=== PATIENT | male | born 1990 | race Caucasian/White ===

== ENCOUNTER 2018-07-29 00:22 | Emergency (ER) | payer OTHER ==
[~2018-07-29] VITALS: Ht 180.3 cm; Wt 79.4 kg
--- NOTE | 2018-07-29 00:23 | NUR ---
Placed in room 7 . Placed on property assessment monitor, blood pressure machine and pulse oximeter. To gown for exam. Side rails up. Report given to NICOLE BARCENAS.
--- NOTE | 2018-07-29 00:23 | NUR ---
Pt c/o right-sided C/P that radiates to upper back that woke him up from sleep 1.5 hours ago. Denies SOB, non-diaphoretic, VSS.
[2018-07-29 00:24] VITALS: BP_SYST 169
[2018-07-29] MEDS ORDERED: KETOROLAC TROMETHAMINE 60 MG/2 ML VIAL IM ONE (01:00)
--- NOTE | 2018-07-29 01:04 | NUR ---
ER at bedside examining patient.
--- NOTE | 2018-07-29 01:19 | NUR ---
Patient given written and verbal discharge instructions and verbalizes understanding. ER MD discussed with patient the results and treatment provided. Patient in stable condition. ID arm band removed. Rx of motrin given. Patient educated on pain management and to follow up with PMD. Pain Scale 4/10. Opportunity for questions provided and answered. Medication side effect fact sheet provided.
[2018-07-29 01:21] VITALS: BP_SYST 150
== END 2018-07-29 01:21 | disposition home or self-care (01) ==
LOC: SED 00:22
DX: R07.89 Other chest pain (principal); I10 Essential (primary) hypertension; F17.210 Nicotine dependence, cigarettes, uncomplicated
CPT/HCPCS: 93005; 96372; 99283; J1885